=== PATIENT | female | born 1990 | race Caucasian/White ===

== ENCOUNTER 2018-10-08 17:07 | Outpatient (CLI) | payer OTHER ==
[2018-10-08 18:19] LABS: BASOPHILS % (AUTO) 0.1 % (0.0-2.0); EOSINOPHILS # (AUTO) 0.3 K/uL (0-0.4); EOSINOPHILS % (AUTO) 2.3 % (0.0-4.0); HEMATOCRIT 41.4 % (36-48); HEMOGLOBIN 13.9 g/dL (12.0-16.0); LYMPHOCYTES # (AUTO) 2.1 K/uL (2.5-16.5); LYMPHOCYTES % (AUTO) 17.8 % (20.5-51.1); MEAN CORPUSCULAR HEMOGLOBIN 30 pg (27-31); MEAN CORPUSCULAR HGB CONC 34 g/dL (33-37); MEAN CORPUSCULAR VOLUME 89.7 fL (80-94); MONOCYTES # (AUTO) 0.7 K/uL (0.8-1.0); MONOCYTES % (AUTO) 5.9 % (1.7-9.3); NEUTROPHILS # (AUTO) 8.7 K/uL (1.8-7.7); NEUTROPHILS % (AUTO) 73.9 % (42.2-75.2); PLATELET COUNT (AUTO) 301 K/uL (140-450); RED BLOOD CELL COUNT(AUTO) 4.62 MIL/uL (4.20-5.40); RED CELL DISTRIBUTION WIDTH 13.3 % (11.6-13.7); WHITE BLOOD COUNT (AUTO) 11.7 K/uL (4.8-10.8)
[2018-10-09 09:40] LABS: HEPATITIS B SURFACE ANTIGEN Negative (Negative)
== END 2018-10-08 19:48 | disposition home or self-care (01) ==
LOC: MLB 17:07
DX: O98.513 Other viral diseases complicating pregnancy, third trimester (principal); A92.5 Zika virus disease; Z3A.00 Weeks of gestation of pregnancy not specified
CPT/HCPCS: 36415; 84702; 85025; 86592; 86702; 86762; 86886; 86900; 86901; 87340

== ENCOUNTER 2018-11-26 14:59 | Outpatient (CLI) | payer OTHER | END 2018-11-26 21:30 | disposition home or self-care (01) | LOC: MUS 14:59 | DX: O26.849 Uterine size-date discrepancy, unspecified trimester (principal); O98.319 Other infections with a predominantly sexual mode of transmission complicating pregnancy, unspecified trimester; Z3A.00 Weeks of gestation of pregnancy not specified | CPT/HCPCS: 76805; Q0092 ==

== ENCOUNTER 2019-01-24 08:52 | Outpatient (CLI) | payer OTHER ==
[2019-01-24 09:21] LABS: BASOPHILS % (AUTO) 0.2 % (0.0-2.0); EOSINOPHILS % (AUTO) 0.3 % (0.0-4.0); HEMATOCRIT 39.4 % (36-48); HEMOGLOBIN 13.2 g/dL (12.0-16.0); LYMPHOCYTES # (AUTO) 1.4 K/uL (2.5-16.5); LYMPHOCYTES % (AUTO) 14.7 % (20.5-51.1); MEAN CORPUSCULAR HEMOGLOBIN 31 pg (27-31); MEAN CORPUSCULAR HGB CONC 34 g/dL (33-37); MEAN CORPUSCULAR VOLUME 92.6 fL (80-94); MONOCYTES # (AUTO) 0.7 K/uL (0.8-1.0); MONOCYTES % (AUTO) 7.7 % (1.7-9.3); NEUTROPHILS # (AUTO) 7.3 K/uL (1.8-7.7); NEUTROPHILS % (AUTO) 77.1 % (42.2-75.2); PLATELET COUNT (AUTO) 255 K/uL (140-450); RED BLOOD CELL COUNT(AUTO) 4.25 MIL/uL (4.20-5.40); RED CELL DISTRIBUTION WIDTH 13.7 % (11.6-13.7); WHITE BLOOD COUNT (AUTO) 9.5 K/uL (4.8-10.8)
[2019-01-24 11:22] LABS: GLUCOSE,FASTING GESTATIONAL 73 mg/dL (70-110)
== END 2019-01-24 21:01 | disposition home or self-care (01) ==
LOC: MLB 08:52
PROVIDERS: ATTEND Obstetrics & Gynecology
DX: Z33.1 Pregnant state, incidental (principal); Z3A.25 25 weeks gestation of pregnancy
CPT/HCPCS: 36415; 82947; 82951; 85025

== ENCOUNTER 2019-03-26 15:16 | Outpatient (CLI) | payer OTHER ==
[2019-03-26 15:40] LABS: BASOPHILS % (AUTO) 0.2 % (0.0-2.0); EOSINOPHILS % (AUTO) 0.4 % (0.0-4.0); HEMATOCRIT 41.1 % (36-48); HEMOGLOBIN 13.9 g/dL (12.0-16.0); LYMPHOCYTES # (AUTO) 1.4 K/uL (2.5-16.5); MEAN CORPUSCULAR HEMOGLOBIN 30 pg (27-31); MEAN CORPUSCULAR HGB CONC 34 g/dL (33-37); MEAN CORPUSCULAR VOLUME 89.2 fL (80-94); MONOCYTES % (AUTO) 11.1 % (1.7-9.3); NEUTROPHILS # (AUTO) 6.7 K/uL (1.8-7.7); NEUTROPHILS % (AUTO) 73.3 % (42.2-75.2); PLATELET COUNT (AUTO) 264 K/uL (140-450); RED BLOOD CELL COUNT(AUTO) 4.61 MIL/uL (4.20-5.40); RED CELL DISTRIBUTION WIDTH 13.6 % (11.6-13.7); WHITE BLOOD COUNT (AUTO) 9.1 K/uL (4.8-10.8)
== END 2019-03-26 20:37 | disposition home or self-care (01) ==
LOC: MLB 15:16
DX: Z34.93 Encounter for supervision of normal pregnancy, unspecified, third trimester (principal); Z3A.36 36 weeks gestation of pregnancy
CPT/HCPCS: 36415; 85025; 86592

== ENCOUNTER 2019-06-15 10:46 | Outpatient (CLI) | payer OTHER | END 2019-06-15 21:50 | disposition home or self-care (01) | LOC: MUS 10:46 | PROVIDERS: ATTEND Obstetrics & Gynecology | DX: O73.1 Retained portions of placenta and membranes, without hemorrhage (principal) | CPT/HCPCS: 76830 ==